=== PATIENT | male | born 1985 | race Caucasian/White ===

== ENCOUNTER 2018-01-20 09:03 | Emergency (ER) | payer OTHER ==
[2018-01-20 09:23] VITALS: BP 108/62
--- NOTE | 2018-01-20 09:41 | UC ---
Ear Complaint HPI - HPI Summary HPI Summary: Patient was swimming in a pool yesterday. Patient this morning has decreased hearing and feeling like his right ear is clogged. No real pain no other symptoms no nasal congestion sinus irritation cough or sore throat no fevers chills nausea or vomiting - History of Current Complaint Chief Complaint: UCEar Stated Complaint: RIGHT EAR Time Seen by Provider: 01/20/18 09:14 Hx Obtained From: Patient Onset/Duration: Sudden Onset, Lasting Days - 1 Pain Intensity: 2 Pain Scale Used: 0-10 Numeric - Allergies/Home Medications Allergies/Adverse Reactions: Allergies Allergy/AdvReac Type Severity Reaction Status Date / Time No Known Allergies Allergy Verified 01/20/18 09:19 Home Medications: Home Medications NK [No Home Medications Reported] 01/20/18 [History Confirmed 01/20/18] PMH/Surg Hx/FS Hx/Imm Hx Previously Healthy: No GI/ History: Kidney Stones - Surgical History Surgical History: None - Family History Known Family History: Positive: None - Social History Occupation: Employed Full-time Lives: With Family Alcohol Use: Occasionally Substance Use Type: None Substance Use Comment - Amount & Last Used: states has not used in the past few years Smoking Status (MU): Heavy Every Day Tobacco Smoker Type: Cigarettes Amount Used/How Often: 1 PPD Length of Time of Smoking/Using Tobacco: Since Age 18 Household Exposure Type: Cigarettes Cessation Counseling: Counseled 3+Min - 10 Min Review of Systems Constitutional: Negative Skin: Negative Eyes: Negative ENT: Ear Ache - Right ear clogged with decreased hearing Respiratory: Negative Cardiovascular: Negative Gastrointestinal: Negative Genitourinary: Negative Motor: Negative Neurovascular: Negative Musculoskeletal: Negative Neurological: Negative Psychological: Negative Is Patient Immunocompromised?: No All Other Systems Reviewed And Are Negative: Yes Physical Exam Triage Information Reviewed: Yes Appearance: Well-Appearing, No Pain Distress, Well-Nourished Vital Signs: Initial Vital Signs Temp 98 F 01/20/18 09:18 Pulse 82 01/20/18 09:18 Resp 16 01/20/18 09:18 BP 108/62 01/20/18 09:18 Pulse Ox 97 01/20/18 09:18 Vital Signs Reviewed: Yes Eye Exam: Normal Eyes: Positive: Conjunctiva Clear ENT Exam: Normal ENT: Positive: Normal ENT inspection, Hearing grossly normal, Pharynx normal, Nasal congestion, TMs normal - left, right with cerumen impaction, Uvula midline , Other - after cerumen removal---tm wnl. Negative: Tonsillar swelling, Trismus , Hoarse voice, Dental tenderness, Sinus tenderness Dental Exam: Normal Neck exam: Normal Neck: Positive: Supple, Nontender, No Lymphadenopathy Respiratory Exam: Normal Respiratory: Positive: Chest non-tender, No respiratory distress, No accessory muscle use Cardiovascular Exam: Normal Cardiovascular: Positive: RRR, Brisk Capillary Refill Abdominal Exam: Normal Musculoskeletal Exam: Normal Musculoskeletal: Positive: Strength Intact, ROM Intact, No Edema Neurological Exam: Normal Neurological: Positive: Alert, Muscle Tone Normal Psychological Exam: Normal Skin Exam: Normal Re-Evaluation - Re-Evaluation First Eval Change: Improved - large amount of cerumen removed by nurse and myself with excellent relief of sx Ear Complaint Course/Dx - Course Course Of Treatment: d/c to home , nicotine cesasation information provided, cermen information provided home in good condition no c/o - Differential Dx/Diagnosis Provider Diagnoses: nicotine dependent, cerumen impaction Discharge - Sign-Out/Discharge Documenting (check all that apply): Discharge/Admit/Transfer - Discharge Plan Condition: Stable Disposition: HOME Patient Education Materials: How to Stop Smoking (ED), Cerumen Impaction (ED) Referrals: Brooke PECK,Gabino Whiting [Primary Care Provider] - If Needed - Billing Disposition and Condition Condition: STABLE Disposition: Home
== END 2018-01-20 10:20 | disposition home or self-care (01) ==
LOC: UCCORT 09:03
DX: H61.21 Impacted cerumen, right ear (principal); F17.210 Nicotine dependence, cigarettes, uncomplicated
CPT/HCPCS: 99212; G0463

== ENCOUNTER 2018-09-16 15:36 | Emergency (ER) | payer OTHER ==
[2018-09-16 16:24] VITALS: BP 119/59
--- NOTE | 2018-09-16 17:43 | UC ---
General HPI - HPI Summary HPI Summary: pt states that he is roused from sleep with a "throbbing" in his R bicep muscle each night for the past 6 days. he denies any current s/s's. no hx of injury. he is R handed and did start a new job about 1 month ago. he denies any cp, sob and swelling to the arm. there is no numbness, weakness or tingling. he denies any neck pain and notes he sleeps on his back with arms at his sides. the throbbing resolves as soon as he stands up. - History of Current Complaint Chief Complaint: UCUpperExtremity Stated Complaint: RIGHT UPPER ARM CONCERN Time Seen by Provider: 09/16/18 17:33 Hx Obtained From: Patient Pain Intensity: 0 Associated Signs & Symptoms: Negative: Abdominal Pain, Cough, Chest Pain, SOB, Weakness - Allergy/Home Medications Allergies/Adverse Reactions: Allergies Allergy/AdvReac Type Severity Reaction Status Date / Time No Known Allergies Allergy Verified 09/16/18 16:24 Home Medications: Home Medications Acetaminophen [Tylenol Extra Strength] 2 tab PO BEDTIME 09/16/18 [History Confirmed 09/16/18] PMH/Surg Hx/FS Hx/Imm Hx Previously Healthy: Yes - Surgical History Surgical History: Yes Surgery Procedure, Year, and Place: for kidney stones x2 - Family History Known Family History: Positive: None - Social History Occupation: Employed Full-time Alcohol Use: Occasionally Alcohol Amount: weekends Substance Use Type: None Substance Use Comment - Amount & Last Used: states has not used in the past few years Smoking Status (MU): Heavy Every Day Tobacco Smoker Type: Cigarettes Amount Used/How Often: 1 PPD Length of Time of Smoking/Using Tobacco: Since Age 18 Household Exposure Type: Cigarettes Review of Systems All Other Systems Reviewed And Are Negative: Yes Constitutional: Positive: Negative Skin: Positive: Negative Eyes: Positive: Negative ENT: Positive: Negative Respiratory: Positive: Negative Cardiovascular: Positive: Negative Gastrointestinal: Positive: Negative Genitourinary: Positive: Negative Motor: Positive: Negative Neurovascular: Positive: Negative Musculoskeletal: Negative: Arthralgia, Decreased ROM, Edema Neurological: Positive: Negative Psychological: Positive: Negative Physical Exam Triage Information Reviewed: Yes Appearance: Well-Appearing Vital Signs: Initial Vital Signs Temp 98.4 F 09/16/18 16:18 Pulse 79 09/16/18 16:18 Resp 17 09/16/18 16:18 BP 119/59 09/16/18 16:18 Pulse Ox 99 09/16/18 16:18 Vital Signs Reviewed: Yes Eyes: Positive: Conjunctiva Clear ENT: Positive: Normal ENT inspection Neck: Positive: Supple, Nontender, No Lymphadenopathy, Other: - c-spine non tender Respiratory: Positive: Chest non-tender, Lungs clear, Normal breath sounds Cardiovascular: Positive: RRR, No Murmur, Pulses Normal - BUE's Abdomen Description: Positive: Nontender, No Organomegaly, Soft. Negative: Distended, Guarding Bowel Sounds: Positive: Present Musculoskeletal: Positive: Other: - Bare from waiste up. BUE's have no deformity , swelling, discoloration or cords. The R arm including bicep is non tender to palpation. RUE has full s/v/m function. Neurological: Positive: Alert Psychological: Positive: Age Appropriate Behavior Skin Exam: Normal Skin: Negative: Rashes Course/Dx - Differential Dx - Multi-Symptom Differential Diagnoses: Other - no concern for fx, dvt, arterial insufficiency or mm strain. no concern for cardiopulmonary pathology or cervical impingement. will tx for mm spasm plus pt advised to f/u pcp for possible electrolyte evaluation. - Diagnoses Provider Diagnosis: Muscle spasm Discharge - Sign-Out/Discharge Documenting (check all that apply): Patient Departure All imaging exams completed and their final reports reviewed: No Studies - Discharge Plan Condition: Stable Disposition: HOME Prescriptions: Naproxen [Naprosyn 500 mg tab] 500 mg PO BID 5 Days #10 tablet Patient Education Materials: Muscle Spasm (ED) Referrals: Brooke PECK,Gabino Whiting [Physician [employer] Facilities Repairer] - As Soon As Possible - Billing Disposition and Condition Condition: STABLE Disposition: Home - Attestation Statements Provider Attestation: Per institutional requirements, I have reviewed the chart, however, I was not consulted specifically or made aware of this patient by the midlevel provider. I did not personally evaluate, interact with , or disposition this patient.
== END 2018-09-16 17:50 | disposition home or self-care (01) ==
LOC: UCCORT 15:36
DX: M62.838 Other muscle spasm (principal); F17.210 Nicotine dependence, cigarettes, uncomplicated
CPT/HCPCS: 99212; G0463

== ENCOUNTER 2019-10-08 10:09 | Emergency (ER) | payer OTHER ==
[2019-10-08 11:46] VITALS: BP 138/78
[2019-10-08 11:53] LABS: Influenza A Molecular Negative (Negative); Influenza B Molecular Negative (Negative)
--- NOTE | 2019-10-08 12:41 | UC ---
Respiratory Complaint HPI - HPI Summary HPI Summary: Pt presents with c/o cough and fever of 100.4 this morning X 2days. - History of Current Complaint Chief Complaint: UCRespiratory Stated Complaint: FEVER/COUGH Time Seen by Provider: 10/08/19 11:30 Hx Obtained From: Patient Onset/Duration: Sudden Onset, Lasting Days, Still Present Severity Initially: Mild Severity Currently: Mild Pain Intensity: 0 Pain Scale Used: 0-10 Numeric Character: Cough: Nonproductive Aggravating Factors: Nothing Alleviating Factors: Nothing Associated Signs And Symptoms: Positive: Fever - Risk Factors Pulmonary Embolism Risk Factors: Smoking Cardiac Risk Factors: Smoking Pseudomonas Risk Factors: Negative Tuberculosis Risk Factors: Negative - Allergies/Home Medications Allergies/Adverse Reactions: Allergies Allergy/AdvReac Type Severity Reaction Status Date / Time No Known Allergies Allergy Verified 10/08/19 11:38 Home Medications: Home Medications Dm/Acetaminophen/Doxylamine [Nighttime Cold-Flu Rlf Sftgl] 2 each PO BID PRN [History Confirmed 10/08/19] Dm/PE/Acetaminophen/Chlorphenr [Veronika-[place] Plus Cold &] 2 cap PO BID PRN 10/07 [History Confirmed 10/08/19] PMH/Surg Hx/FS Hx/Imm Hx Previously Healthy: Yes - Surgical History Surgical History: Yes Surgery Procedure, Year, and Place: for kidney stones x2 - Family History Known Family History: Positive: Cardiac Disease - Social History Occupation: Employed Full-time Lives: With Family Alcohol Use: Occasionally Alcohol Amount: weekends Substance Use Type: Cocaine Substance Use Comment - Amount & Last Used: weekend use- last used over the weekend Smoking Status (MU): Heavy Every Day Tobacco Smoker Type: Cigarettes Amount Used/How Often: 1 PPD Length of Time of Smoking/Using Tobacco: Since Age 18 Have You Smoked in the Last Year: Yes Household Exposure Type: Cigarettes Review of Systems All Other Systems Reviewed And Are Negative: Yes Constitutional: Positive: Fever, Chills, Fatigue Skin: Positive: Negative Eyes: Positive: Negative ENT: Positive: Sinus Congestion Respiratory: Positive: Cough Cardiovascular: Positive: Negative Gastrointestinal: Positive: Negative Genitourinary: Positive: Negative Motor: Positive: Negative Neurovascular: Positive: Negative Musculoskeletal: Positive: Myalgia Neurological/Mental Status: Positive: Negative Psychological: Positive: Negative Is Patient Immunocompromised?: No Physical Exam Triage Information Reviewed: Yes Appearance: Ill-Appearing Vital Signs: Initial Vital Signs Temp 99.3 F 10/08/19 11:40 Pulse 126 10/08/19 11:40 Resp 15 10/08/19 11:40 BP 138/78 10/08/19 11:40 Pulse Ox 98 10/08/19 11:40 Vital Signs Reviewed: Yes Eye Exam: Normal ENT: Positive: Hearing grossly normal Respiratory: Positive: No respiratory distress Musculoskeletal Exam: Normal Neurological Exam: Normal Psychological Exam: Normal Skin Exam: Normal Respiratory Course/Dx - Differential Dx/Diagnosis Differential Diagnosis/HQI/PQRI: Influenza, SARS, Other - COVID Provider Diagnosis: Acute viral syndrome Discharge ED - Sign-Out/Discharge Documenting (check all that apply): Patient Departure All imaging exams completed and their final reports reviewed: No Studies - Discharge Plan Condition: Stable Disposition: HOME Patient Education Materials: Fever in Adults (ED), Viral Syndrome (ED) Forms: *Work Release Referrals: [facility] [Outside] - If Needed No Primary Care Phys,NOPCP [Primary Care Provider] - Additional Instructions: Please review the [facility] quarantine recommendation. Please do not return to work until you have been told that you can. - Billing Disposition and Condition Condition: STABLE Disposition: Home
--- NOTE | 2019-10-12 14:15 | UC ---
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
== END 2019-10-08 12:30 | disposition home or self-care (01) ==
LOC: UCCORT 10:09
DX: B34.9 Viral infection, unspecified (principal); R53.83 Other fatigue; R09.81 Nasal congestion; M79.10 Myalgia, unspecified site; F17.210 Nicotine dependence, cigarettes, uncomplicated
CPT/HCPCS: 87651; 99211; G0463; U0002